=== PATIENT | female | born 1930 | race Caucasian/White ===

== ENCOUNTER 2020-03-08 10:42 | Inpatient (IN) | payer OTHER ==
[~2020-03-08] VITALS: Ht 160 cm; Wt 62.4 kg
--- NOTE | ~2020-03-08 | EMS ---
[address] [address] EMS Patient Care Report Name: GINNY LEWIS Room #: PRE LIDYA Delgado#: [id number] Admission: Attend Phys: Discharge: Date of : [birth year] Report #: [id number] THIS REPORT FOR: //name// Report Transmitted: 03/08/2020 10:24 EMS Care Summary [facility] MED-ACT Incident [id number] @ 03/08/2020 10:17 Incident Location [address] [place] [address] Patient GINNY LEWIS Female, 89 Years 1930 Patient Address [address] [place] [address] Patient History Diabetes,Hypertension (HTN),Depression,Back Pain (Chronic), Patient Allergies Demerol, Patient Medications Simvastatin, Amitriptyline, Citalopram, Metformin, Chief Complaint L FACIAL DROOP, SLURRED SPEECH Disposition Transported No Lights/[place] Dispatch Reason Stroke/CVA Transported To [facility] Narrative M1134 IS DISPATCHED AND RESPONDS NOTED. [address] [address] EMS Patient Care Report Name: GINNY LEWIS Room #: PRE ER Danny#: [id number] Admission: Attend Phys: Discharge: Date of : [birth year] Report #: [id number] UPON ARRIVAL AT SCENE M1134 IS DIRECTED TO PT ROOM. STAFF STATES THAT PT HAS BEEN SEEN 2 PREVIOUS TIMES IN 4 DAYS FOR TIA'S. THIS MORNING WHILE PROVIDING SERVICES TO PT, STAFF STATES PT HAD SUDDEN ONSET OF L FACIAL DROOP AND SLURRED SPEECH. UPON PT CONTACT, PT IS FOUND SEATED, ALERT, TRACKING, SHOWING NO SIGNS OF DISTRESS OR OBVIOUS TRAUMA. PT HAS OBVIOUS L FACIAL DROOP NOTED. PT CONFIRMS HER SPEECH IS ABNORMAL, HAS NO OTHER COMPLAINTS. PT DENIES PAIN, SOA, NVD OR OTHER UNLISTED COMPLAINTS. STROKE ALERT CALLED. PT MOVED TO COT [place]IA [place] [facility] WITHOUT INCIDENT. PT SECURED WITH ALL STRAPS, MOVED TO AMBULANCE WITHOUT INCIDENT. PT AND FAMILY AGREE TO TRANSPORT TO NEAREST STROKE CENTER, [facility]. PT MONITORED E[place]TE. RADIO REPORT AND STROKE ACTIVATION CALLED [place], NO QUESTIONS OR ORDERS ASKED OR RECEIVED. UPON ARRIVAL AT [facility] ER PT MOVED TO CT, PLACED ON SCANNER AND LEFT UNDER SUPERVISION OF CLAIMS CONFIGURATION ANALYST AND TURBO GENERATOR OILER. PT CARE TRANSFERRED TO CLAIMS CONFIGURATION ANALYSTANN MARIE RICO WITH VERBAL REPORT. Initial Vitals @10:31P: 79,R: 18,BP: 131/60,Pain: 0/10,GCS: 15,Glucose: 197,Revised Trauma: 12, @10:24P: 82,R: 18,BP: 116/65,Pain: 0/10,GCS: 15,Revised Trauma: 12, @10:36P: 74,R: 18,BP: 134/66,Pain: 0/10,GCS: 15,Revised Trauma: 12, Assessments @10:24MENTAL:Place Oriented,Time Oriented,Person Oriented,Event Oriented,SKIN:HEENT:Head/Face: Facial Droop,Eyes: Left Pupil: 4-mm,Eyes: Right Pupil: 4-mm,LUNG SOUNDS:Right Upper: Other,ABDOMEN:Right Upper: Other,PELVIS//GI:EXTREMITIES:Capillary Refill: Right Upper: < 2 Sec,Capillary Refill: Left Upper: < 2 Sec,PULSE:Radial: 2+ Normal,NEURO:Facial Droop,Slurred Speech, Impression Stroke Procedures @10:24ALS AssessmentResponse: UnchangedSucceeded@10:25Stroke AlertResponse: Unchanged@10:29Saline Lock 10cc (18 ga) Site: Antecubital-LeftResponse: UnchangedSucceeded Timeline 10:16,Call Received 10:16,Psap Call 10:17,Dispatched [address] [address] EMS Patient Care Report Name: GINNY LEWIS Room #: PRE ER M.R.#: [id number] Admission: Attend Phys: Discharge: Date of : [birth year] Report #: [id number] 10:19,En Route 10:21,On Scene 10:23,At Patient 10:24,ALS Assessment,Response: UnchangedSucceeded, 10:24,BP: 116/65 M,PULSE: 82,RR: 18 R,SPO2: Ox,ETCO2: ,BG: ,PAIN: 0,GCS: 15, 10:25,Stroke Alert,Response: Unchanged 10:29,Saline Lock 10cc 18 ga Site: Antecubital-Left,Response: UnchangedSucceeded, 10:30,Depart Scene 10:31,BP: 131/60 M,PULSE: 79,RR: 18 R,SPO2: Ox,ETCO2: ,B,PAIN: 0,GCS: 15, 10:36,BP: 134/66 M,PULSE: 74,RR: 18 R,SPO2: Ox,ETCO2: ,BG: ,PAIN: 0,GCS: 15, 10:40,At Destination 10:43,Transfer Patient 11:00,Call Closed Disclaimer v1.1 Copyright 2020 [employer] This EMS Care Summary contains data elements from the applicable legal record (which may be displayed differently). It is designed to provide pertinent information for the following purposes: continuity of care, clinical quality, and state data reporting. The complete legal record is available to ED staff and administrators of the receiving hospital in [employer] Patient Tracker. All data is provided "as is."
--- NOTE | ~2020-03-08 | HC ---
[facility] [place] [address] CONSULTATION Name: GINNY LEWIS Room #: 204-P ADM IN M.R.#: [id number] Admission: 03/08/20 Attend Phys: aJe Dawn MD Discharge: Date of : [birth year] Report #: [id number] THIS REPORT FOR: cc: Saw Whitehead MD,Saw Stout,Yoni Belcher MD ~ CC: Jae Whitehead DATE OF SERVICE: 03/08/2020 HISTORY OF PRESENT ILLNESS: This is an 89-year-old female patient who was evaluated by me for the possibility of stroke. The patient was discussed with the Emergency Room physician and subsequently I talked to the patient's daughter multiple times and talked to the patient. I talked to MRI and we got the MRI done and I reviewed the MRI report and the films. The patient was in [facility] on Tuesday with what looks like an episode of speech difficulty and right-sided weakness from which she became better. She may not have returned completely back to the baseline, but overall she was improved. She had another episode yesterday and had another episode today and in fact she may have had the fourth episode. She is not completely back to the baseline, but is close to that. MRI films reviewed indicate that she had an acute infarct. There are small infarcts in the left cerebral hemisphere, which will correlate with the patient's symptoms. She had a slight fall, but does not look like she injured her spine much, but she had an old spine injury and so I got an MRI of the C-spine done and that shows myelomalacia, which would be consistent with injury. It complicates the things because the patient has a preexisting weakness on the right side that is because of spinal cord injury and now is having symptoms on the same side. REVIEW OF SYSTEMS: She is on multiple medications like Lexapro and amitriptyline. She is on aspirin. She had some history of falls. There had been some concern about giving her blood thinner because of the falls. She still lives in independent living. A 14-point review of systems is positive for above. PAST MEDICAL HISTORY: Positive for spinal cord injury long time ago. FAMILY HISTORY: Unremarkable. SOCIAL HISTORY: She is in assisted living and she has a very supporting daughter. PHYSICAL EXAMINATION: She is alert, responsive, able to follow simple and [facility] [address] [place] [address] CONSULTATION Name: GINNY LEWIS Room #: 204-P [facility] IN .R.#: [id number] Admission: 03/08/20 Attend Phys: Jae Dawn MD Discharge: Date of : [birth year] Report #: [id number] complex command. Her speech reasonably looked good now, but it was slurred earlier. She is weak on the right side, especially in the right leg, she barely moves, but apparently that is old, but she can still appreciate the position sense on both sides. There is no meningeal sign. Cardiac examination appears unremarkable. No respiratory difficulty was noticed. I reviewed all her MRI films and discussed the situation with the daughter and in fact showed her the films. IMPRESSION: 1. 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 2. 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 RECOMMENDATION: I discussed the situation with the patient and the daughter. I discussed with them that the large vessel looks good and the stroke is most likely because of small vessel disease. Unfortunately, not much can be done about that except antiplatelet therapy. I discussed with them that it is the nature of the stroke that they fluctuate for up to several days and can become worse for several days and sometime the patient becomes completely paralyzed before they start improving. We have given her a loading dose of Plavix. We will continue about with a combination of aspirin and Plavix. Daughter tells me that she has a history of fall. That does complicate the things because blood thinner does increase her chances of complication from the fall as well as for bleeding. So after discussing things with her, my recommendation was to continue combination of aspirin and Plavix when she is in the hospital and she will have more help available. Hopefully, after that she can go to rehab, especially with her history of fall, I hope she will qualify because she needs to be closely monitored and she came from independent living and falls can be catastrophic in this patient and on the basis of that, I hope she will qualify for rehabilitation. If not, then I think we have to consider usp facility because I do not think she should go to independent living for the time being because of the history of the fall and I hope on the basis of that, she will qualify to go to rehab or usp facility. We will put a PT, OT consult and a returned case inspector consult to see if she qualifies. We need to keep her blood pressure somewhat high for a permissive hypertension and we need to give her some fluids. If she deteriorates, we will give her more fluids. We will get an echocardiogram done and as an outpatient, she may need prolonged monitoring to look for atrial fibrillation. If we find any atrial fibrillation when she is on the monitor here, then I do not think she will need that prolonged monitoring. Those things will be decided next week. Presently, I think it is best to keep her in the hospital, give her a combination of aspirin and Plavix, nurses should help her to prevent any falls and hopefully she will qualify for the rehab and can go and spend some time in rehabilitation until she can come back to her baseline and long-term use of aspirin and Plavix will be decided later on in conjunction with discussion with the daughter and the [facility] [address] [place] [address] CONSULTATION Name: GINNY LEWIS Room #: 204-P [facility] IN ..#: [id number] Admission: 03/08/20 Attend Phys: Jae Dawn MD Discharge: Date of : [birth year] Report #: [id number] patient herself. After talking to daughter, I also talked to the patient and described all those things with her and she is agreeable with that. Approximately 50 minutes of time was spent taking care of this patient today and majority of that time was spent counseling the daughter, the patient, reviewing her films, reviewing her imaging studies of the brain. Thank you very much for this referral and if you have any question, please feel free to contact me. By: [id number] Yoni Stout MD /nt
--- NOTE | ~2020-03-08 | HC ---
[facility] [place] [address] CONSULTATION Name: GINNY LEWIS Room #: 204-P [facility] IN M.R.#: [id number] Admission: 03/08/20 Attend Phys: Jae Dawn MD Discharge: 03/10/20 Date of : [birth year] Report #: [id number] THIS REPORT FOR: cc: Saw Whitehead MD,Praneeth Champion MD, MD ~ CC: Jae Whitehead DATE OF SERVICE: 03/10/2020 HISTORY OF PRESENT ILLNESS: The patient is an 89-year-old white female who was admitted with right-sided weakness, noted to be recurrent. She also had a fall backwards with injury to the back of her head. She was admitted and underwent further evaluation. Workup is consistent with an acute CVA with right-sided weakness. She was noted to have 4 small CVAs, left thalamic as well as adjacent white matter. A prior history is a history of a cervical spinal cord injury when she apparently fell off a bridge 25 years ago and she does have some resultant right-sided weakness. Her course has now been complicated by some further weakness from this new stroke. She also underwent an MRI scan of her cervical spine by Neurology and it did reveal some severe neural foraminal stenosis at C5-C6. She also has the old thinning of the cervical spinal cord at C6-C7 with some changes suggestive of myelomalacia. With the new CVA complicating a prior cervical spinal cord injury with residual paresis, the patient is now being seen in Rehabilitation Medicine consultation. PAST MEDICAL HISTORY: Includes the prior cervical spinal cord injury. She has a history of back pain, depression, diabetes mellitus, and hypertension. ALLERGIES: MEPERIDINE. MEDICATIONS: Please see the full medication listing. HABITS: No history of tobacco abuse, alcohol only on special occasions. SOCIAL HISTORY: She has been living in an independent living apartment with her caregiver. The person was not really a caregiver, but more of a sitter. The daughter notes that she did assist with some bathing and also trying to ensure that the patient did not fall. The daughter indicates that the prior sitter is not an option and they will need to get a different sitter or consider having the patient move into an assisted living facility. [facility]. REVIEW OF SYSTEMS: No current complaints of chest pain, shortness of breath or abdominal discomfort. [address] [address] CONSULTATION Name: GINNY LEWIS Room #: 204-P [facility] IN ..#: [id number] Admission: 03/08/20 Attend Phys: Jae Dawn MD Discharge: 03/10/20 Date of : [birth year] Report #: [id number] PHYSICAL EXAMINATION: GENERAL: An 89-year-old pleasant white female, in no obvious distress. She is here with her daughter in the room. The patient is alert. VITAL SIGNS: Temperature 98.3, pulse 88, respirations 17, blood pressure 142/73. HEENT: Appeared to be benign. NEUROLOGIC: Cranial nerves are grossly intact. Facies appeared symmetric. There is slight slurring of her speech, but overall can communicate quite well. Tends to defer some answers to her daughter. EXTREMITIES: She does have some decreased coordination of that right upper extremity. Strength is probably a grade 4-/5. Right lower extremity appears weaker, probably a grade 3+ with some difficulty with hip flexion and knee extension, but this is noted to be old with a prior spinal cord injury. Tone was actually reasonably intact. There was no clonus at the ankle and no significant DTR at the knee. Sensation appeared reasonably intact to simultaneous stimulation except for some decreased sensation of her right third digit, which she thought might be worse than premorbid. Functionally, she has been min assist sit to stand and gait short distances is min assist with a front-wheeled walker. ASSESSMENT: An 89-year-old white female with the following problem list: 1. 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 2. 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 3. Right-sided weakness, some appears to be premorbid, now complicated by the new strokes. 4. Functional mobility and activities of daily living deficits and cognitive concerns. 5. Diabetes mellitus. 6. Hypertension. 7. Depression. PLAN: The patient is a candidate for an acute [address] [place] [address] inpatient rehabilitation stay. Can plan on transfer when medically cleared and a bed available. Thank you for asking us to assist in this patient's care. By: [id number] Praneeth Flower MD /IDA
[2020-03-08] MEDS ORDERED: METFORMIN HCL500 M3 PO (11:14)
[2020-03-08] MEDS ORDERED: SIMVASTATIN80 MG PO (11:15)
[2020-03-08] MEDS ORDERED: CELEXA 20 MG TA20 MG PO (11:15)
[2020-03-08] MEDS ORDERED: AMITRIPTYLINE H50 M3 PO (11:16)
[2020-03-08] MEDS ORDERED: ESSENTIAL DAIL1 EACH PO (11:16)
[2020-03-08] MEDS ORDERED: ALPHA LIPOIC A600 M1 PO (11:17)
[2020-03-08] MEDS ORDERED: SENNA PLUS TAB1 EACH PO (11:18)
[2020-03-08] MEDS ORDERED: APAP650 PO (11:18)
[2020-03-08 11:22] LABS: ABSOLUTE NEUTROPHILS 3.7 thou/uL (1.4-8.2); BASOPHILS 0.7 % (0.0-2.0); EOSINOPHILS 6.9 % (0.0-3.0); HEMATOCRIT 32.7 % (37.0-47.0); HEMOGLOBIN 11.1 gm/dL (12.0-15.0); LYMPHOCYTES 19.7 % (24.0-44.0); MCH 32.1 pg (26.0-34.0); MCV 94.6 fL (80.0-100.0); MONOCYTES 10.1 % (1.0-8.0); PLATELET COUNT 269 thou/uL (150-400); POLYS 62.6 % (36.0-66.0); RBC 3.45 mil/uL (4.20-5.00); RDW 13.8 % (10.5-14.5); WBC 5.9 thou/uL (4.0-11.0)
[2020-03-08 11:29] LABS: APTT 27.9 Seconds (24.5-32.8); INR 1.1; PROTIME 10.9 Seconds (9.3-11.4)
[2020-03-08 11:45] LABS: ANION GAP 7 mmol/L (7-16); BUN 23 mg/dL (7-18); CALCIUM 8.9 mg/dL (8.5-10.1); CHLORIDE 100 mmol/L (98-107); CO2 29 mmol/L (21-32); CREATININE 0.8 mg/dL (0.6-1.0); GLUCOSE 173 mg/dL (74-106); POTASSIUM 4.1 mmol/L (3.5-5.1); SODIUM 136 mmol/L (136-145)
[2020-03-08 11:49] LABS: ALBUMIN 3.3 g/dL (3.4-5.0); MAGNESIUM 2.1 mg/dL (1.8-2.4); SGOT 15 U/L (15-37); SGPT 19 U/L (30-65); TOTAL BILIRUBIN 0.3 mg/dL (0.2-1.0); TOTAL PROTEIN 6.7 g/dL (6.4-8.2); TROPONIN-I <0.06 ng/mL (<0.06)
[2020-03-08 16:20] VITALS: BP 170/81
[2020-03-08 17:30] VITALS: BP 142/102
--- NOTE | 2020-03-08 18:14 | NUR ---
PATIENT ARRIVED FROM ED VIA W/C, ALERT AND ORIENTED X4, ACCOMPANIED BY HER DAUGHTER AND SCAGLIOLA MECHANIC. ASSESSMENT DOCUMENTED, AND ADMISION COMPLETED. BP 142/102, OTHER VSS AND NIHSS 0. AND WILL CONTINUE WITH POC.
[2020-03-08 19:30] VITALS: BP 171/67
[2020-03-09 04:00] VITALS: BP 153/86
[2020-03-09 05:12] LABS: HEMATOCRIT 33.7 % (37.0-47.0); HEMOGLOBIN 11.5 gm/dL (12.0-15.0); MCH 32.3 pg (26.0-34.0); MCV 94.9 fL (80.0-100.0); RBC 3.55 mil/uL (4.20-5.00); RDW 14.1 % (10.5-14.5); WBC 6.4 thou/uL (4.0-11.0)
[2020-03-09 05:37] LABS: CALCIUM 8.7 mg/dL (8.5-10.1); CREATININE 0.8 mg/dL (0.6-1.0); POTASSIUM 3.9 mmol/L (3.5-5.1)
--- NOTE | 2020-03-09 05:50 | NUR ---
ASSESSMENT DOCUMENTED.PT BEEN RESTING IN NO ACUTE DISTRESS.A/OX4.VSS.PT REPORTED THAT SHE NOTED BLOOD IN HER COMMOND AFTER USING THE BSC,RN CHECKED NO SIGNS OF BLEEDING.RECTAL AREA WAS INSPECTED,NO SIGN OF BLOOD OR ACTIVE BLEEDING NOTED.DR SALAMANCA DISCONTINUED LOVENOX AND ADVISED TO MONITOR FOR BLEEDING.NO DROP IN HGB NOTED.UP WITH ASSIST TO TOILET.PT DENIES PAIN OR ANY DISTRESS AT THIS TIME.POC IS TO CONT WITH TX WITH POSSIBLE DISCHARGE TO REHAB IN 1-2 DAYS.
[2020-03-09 07:20] VITALS: BP 157/76
[2020-03-09 08:12] VITALS: BP 157/76
[2020-03-09 11:52] VITALS: BP 147/77
[2020-03-09 15:31] VITALS: BP 165/80
--- NOTE | 2020-03-09 16:50 | NUR ---
ASSUMED CARE AT SHIFT, ALERT AND ORIENTED X4. BP 147-167/76-80, OTHER VSS AND NSR ON THE MONITOR. DENIES NAY DISCOMFORT. CALL APPROPRIATLY FOR ASSISTANCE. PROGRESSING TOWARDS THE GOALS AND WILL CONTINUE WITH POC.
[2020-03-09 17:28] LABS: URINE BILIRUBIN NEGATIVE (Negative); URINE BLOOD NEGATIVE (Negative); URINE CLARITY CLEAR; URINE COLOR YELLOW; URINE GLUCOSE-RANDOM* NEGATIVE (Negative); URINE KETONES NEGATIVE (Negative); URINE LEUKOCYTES-REFLEX TRACE (Negative); URINE NITRITE-REFLEX NEGATIVE (Negative); URINE PROTEIN (DIPSTICK) NEGATIVE (Negative); URINE UROBILINOGEN 0.2 E.U./dl (0.2-1.0)
[2020-03-09 17:38] LABS: AMP/METHAMP Negative (Negative); BARBITURATES Negative (Negative); BENZODIAZEPINES Negative (Negative); COCAINE Negative (Negative); METHADONE Negative (Negative); OPIATES Negative (Negative); PCP Negative (Negative)
[2020-03-09 19:55] VITALS: BP 162/83
[2020-03-10 00:28] VITALS: BP 158/74
--- NOTE | 2020-03-10 04:06 | NUR ---
NO EVENTS OVERNIGHT. PT ALERT AND ORIENTED. VSS. DENIES PAIN, CHEST DISCOMFORT, OR NAUSEA AND VOMITING. ASSIST X 1 TO THE BEDSIDE COMMODE. NIH SCORE 2. PT COMPLAINS OF INCREASED RIGHT LEG WEAKNESS FOR A FEW DAYS NOW. NO OTHER CONCERNS. WILL CONTINUE TO MONITOR.
[2020-03-10 04:39] VITALS: BP 166/86
[2020-03-10 05:05] LABS: CHOLESTEROL 197 mg/dL (<200); HDL CHOLESTEROL 59 mg/dL (>40); LDL CHOLESTEROL 123 mg/dL (<100); TC:HDL 3.3 Ratio (Not establshd); TRIGLYCERIDE 78 mg/dL (<150); VLDL 16 mg/dL (<40)
[2020-03-10 05:06] LABS: SERUM ASSESSMENT Clear
[2020-03-10 07:57] VITALS: BP 145/90
--- NOTE | 2020-03-10 08:14 | EKG ---
[facility] [place] [address] ELECTROCARDIOGRAM REPORT Name: GINNY LEWIS Room #: 204-P ADM IN M.R.#: [id number] Admission: 03/08/20 Attend Phys: Jae Dawn MD Discharge: Date of : [birth year] Report #: [id number] THIS REPORT FOR: cc: Saw Whitehead MD, Christopher MD Lundgren,Rivas Vences MD [facility] ~ THIS REPORT FOR: //name// [facility] ED Test Date: 2020-03-08 Test Time: 11:31:06 Pat Name: GINNY LEWIS Department: Room: [facility] Gender: F Deli Clerk: fa : 1930 Requested By: Neal Phoenix Order Number: [id number] MD: Rivas Plata Measurements Intervals [place] Rate: 70 P: 72 WV: 208 QRS: 18 QRSD: 106 T: 20 QT: 408 QTc: 441 Interpretive Statements Sinus rhythm Septal infarct, age indeterminant No previous ECG available for comparison Electronically Signed On 03-10-2020 8:13:59 CDT by Rivas Plata [email or web address] <ELECTRONICALLY SIGNED> By: Rivas Plata MD, FAC 03/10/20 08 1131 1131 Rivas Plata MD, [facility] /EPI
--- NOTE | 2020-03-10 10:46 | NUR ---
met with patient who resides in independent living at [facility], dtr at bedside. She has a "sitter" per dtr 5 days a week for 8 hours a day, Sitter does not provide hands on care assist with laundry and meals. On weekend she has assistance with meals. Patient uses a walker for ambulation. Dtr reports she does not ambulate very far. She has a wc but does not use. She has commode at bedside. Patient has been at [facility] in [facility] and [facility]. She is to be evaled by [facility] today. patient agreeable to acute rehab.
--- NOTE | 2020-03-10 11:25 | 2DMMODE ---
[facility] [address] [place] [address] 2 D/M-MODE ECHOCARDIOGRAM Name: GINNY LEWIS Room #: 204-P ADM IN M.R.#: [id number] Admission: 03/08/20 Attend Phys: Jae Dawn MD Discharge: Date of : [birth year] Report #: [id number] THIS REPORT FOR: cc: Saw Whitehead MD, Christopher MD Lammoglia, Francisco J. MD ~ APPROVED REPORT Study performed: 03/10/2020 09:28:08 EXAM: Comprehensive 2D, Doppler, and color-flow Echocardiogram Patient Location: Bedside Room #: 204 Status: routine BSA: 1.63 HR: 85 bpm BP: 145/90 mmHg Rhythm: NSR Other Information Study Quality: Good Indications CVA/TIA Diabetes Hypertension/HDD Echo Enhancing Agent Indication: Rule out Shunt Agent(s) / Amount(s) Used: Agitated Saline 7 cc 2D Dimensions IVC: 11.00 mm Volumes Left Atrial Volume (Systole) Single Plane 4CH: 33.72 mL Single Plane 2CH: 25.68 mL LA ESV Index: 22.00 mL/m2 Aortic Valve AoV Peak Miguel Ángel.: 1.52 m/s AO Peak Gr.: 9.20 mmHg LVOT Max P.36 mmHg LVOT Max V: 1.04 m/s [facility] [place] [address] 2 D/M-MODE ECHOCARDIOGRAM Name: GINNY LEWIS Room #: 204-P ADM IN M.R.#: [id number] Admission: 03/08/20 Attend Phys: Jae Dawn MD Discharge: Date of : [birth year] Report #: [id number] Pulmonary Valve PV Peak Miguel Ángel.: 0.90 m/s PV Peak Gr.: 3.27 mmHg Left Ventricle The left ventricle is normal size. There is normal LV segmental wall motion. There is normal left ventricular wall thickness. The left ventricular systolic function is normal. The left ventricular ejection fraction is within the normal range. LVEF is 55-60%. Grade I - abnormal relaxation pattern. Right Ventricle The right ventricle is normal size. The right ventricular systolic function is normal. Atria The left atrium size is normal. PFO is noted with agitated saline injection. The right atrium size is normal. Aortic Valve The aortic valve is normal in structure. No aortic regurgitation is present. There is no aortic valvular stenosis. Mitral Valve The mitral valve is normal in structure. Trace mitral regurgitation. No evidence of mitral valve stenosis. Tricuspid Valve The tricuspid valve is normal in structure. There is no tricuspid valve regurgitation noted. Pulmonic Valve The pulmonary valve is normal in structure. There is no pulmonic valvular regurgitation. Great Vessels The aortic root is normal in size. IVC is normal in size and collapses >50% with inspiration. Pericardium There is no pericardial effusion. <Conclusion> The left ventricle is normal size. LVEF is 55-60%. The left atrium size is normal. The right atrium size is normal. [facility] [address] [place] [address] 2 D/M-MODE ECHOCARDIOGRAM Name: GINNY LEWIS Room #: 204-P [facility] IN .R.#: [id number] Admission: 03/08/20 Attend Phys: Jae Dawn MD Discharge: Date of : [birth year] Report #: [id number] The aortic valve is normal in structure. The mitral valve is normal in structure. Trace mitral regurgitation. The tricuspid valve is normal in structure. The pulmonary valve is normal in structure. There is no pericardial effusion. PFO is noted with agitated saline injection. <ELECTRONICALLY SIGNED> By: Matthias Joseph MD 03/10/20 1124 1124 1124 Matthias Joseph MD /INF
[2020-03-10] MEDS ORDERED: LIPITOR 20 MG T20 M1 PO (11:46)
[2020-03-10] MEDS ORDERED: ASPIRIN325 PO (11:46)
[2020-03-10] MEDS ORDERED: CLOPIDOGREL75 MG PO (11:46)
[2020-03-10 12:32] VITALS: BP 142/73
--- NOTE | 2020-03-10 12:34 | NUR ---
[facility] CONSULT RECEIVED FOR THIS PATIENT. Pt SEEN THIS AM BY DR. FRANKLIN. Pt IS GOOD CANDIDATE FOR ACUTE REHAB. PER DR. GARCÍA, Pt MEDICALLY READY FOR D/C TO REHAB TODAY. WILL PLAN TO ADMIT Pt TO [facility] REHAB THIS AFTERNOON. SPOKE WITH Pt ABOUT REHAB AND LEFT BROCHURE AT BEDSIDE FOR Pt AND DTR.
--- NOTE | 2020-03-10 14:58 | NUR ---
PATIENT ACCEPTED TO 5N PLAN TRANSFER TODAY.
--- NOTE | 2020-03-10 15:01 | NUR ---
ASSUMED CARE AT SHIFT CAHNGE ALERT AND ORIENTED, AND VSS. PATIENT DENIES ANY DISCOMFORT, DAUGHTER AT BEDSIDE VISITING. PLAN IS FOR PATIENT TO TRANSFER TO 5N, WAITING ON BED AND WILL CONTINUE WITH POC.
== END 2020-03-10 18:55 | DRG 65 ==
LOC: ER 10:42 → 2N 13:38 → EROBS 13:38 → 2N 16:33
PROVIDERS: Emergency Medicine; ADMIT Hospitalist; ATTEND Hospitalist
DX: I63.81 Other cerebral infarction due to occlusion or stenosis of small artery (principal); G81.91 Hemiplegia, unspecified affecting right dominant side; E44.1 Mild protein-calorie malnutrition; F32.9 Major depressive disorder, single episode, unspecified; I10 Essential (primary) hypertension; M54.12 Radiculopathy, cervical region; E11.65 Type 2 diabetes mellitus with hyperglycemia; E78.5 Hyperlipidemia, unspecified; Z60.2 Problems related to living alone; M62.84 Sarcopenia; K59.00 Constipation, unspecified; G47.00 Insomnia, unspecified; Z88.8 Allergy status to other drugs, medicaments and biological substances; Z79.82 Long term (current) use of aspirin; Z79.899 Other long term (current) drug therapy
CPT/HCPCS: 10081

== ENCOUNTER 2020-03-10 12:55 | Inpatient (IN) | payer OTHER ==
[~2020-03-10] VITALS: Ht 160 cm; Wt 50.2 kg
[~2020-03-10 12:55] MED LIST: ALPHA LIPOIC A600 M1 PO; AMITRIPTYLINE H50 M3 PO; APAP650 PO; ASPIRIN325 PO; CELEXA 20 MG TA20 MG PO; CLOPIDOGREL75 MG PO; ESSENTIAL DAIL1 EACH PO; LIPITOR 20 MG T20 M1 PO; METFORMIN HCL500 M3 PO; SENNA PLUS TAB1 EACH PO; SIMVASTATIN80 MG PO
--- NOTE | 2020-03-10 15:58 | NUR ---
chart review. jhon visited with sony via phone call prior to move to acute rehab. intro to cm, team meeting, and dcp. pt is able to make her needs know and is pleasant. she reported " live at independent living [facility]. 1st floor apartment. manage own medication. no longer drive. can get meals at [facility]. laundry room is in apartment. shower myself but someone is in the bathroom when i bathe. have rollator, shower chair, grab bars, bedside commode and life alert. have animal care service worker that only assist with meals, errands, cleaning and laundry 5 days week. [facility]. was supposed to have [facility] start this week. daughter benedict would be my support if needed. pcp dr fabienne esquivel"/sony. will cont following as needed for dc needs.
[2020-03-10 19:10] VITALS: BP 154/74
--- NOTE | 2020-03-11 04:10 | NUR ---
PLEASANT PATIENT IS ABLE TO WALK TO TOILET, BUT HAS HIP PAIN AND DRAGS RIGHT LEG ENOUGH THAT SHE WANTS TO USE BSC NEXT TRIP. SIGNIFICANT CASE OF USI WHICH SHE MANAGES WITH BRIEF AND PAD. LOOKS FORWARD TO WORKING WITH THERAPY TODAY SHE HAS RIGHT LEG WEAKNESS COMPLICATING PREVIOUS RIGHT LEG FOOT DRAG/DROP. PREDICTS THAT SHE WILL BE MVING FROM INDEPENDENT LIVING TO ASSISTED LIVING IN THE NEAR FUTURE
[2020-03-11 05:52] LABS: HEMATOCRIT 33.8 % (37.0-47.0); HEMOGLOBIN 11.5 gm/dL (12.0-15.0); MCH 32.3 pg (26.0-34.0); MCHC 34.1 g/dL (28.0-37.0); MCV 94.8 fL (80.0-100.0); RBC 3.56 mil/uL (4.20-5.00); RDW 13.9 % (10.5-14.5); WBC 5.6 thou/uL (4.0-11.0)
[2020-03-11 06:00] LABS: CALCIUM 8.6 mg/dL (8.5-10.1); CREATININE 0.8 mg/dL (0.6-1.0)
--- NOTE | 2020-03-11 13:12 | NUR ---
team meeting, recommendation: re team.
--- NOTE | 2020-03-11 17:39 | NUR ---
ASSUMED CARE AT 0700 TODAY. PT. IS MIN ASSIST WITH STANDING, GOING TO BATHROOM, GETTING INTO AND OUT OF BED. SHE WEARS BRIEFS FOR UA STRESS INCONTINENCE. DIABETIC PROTOCOL ORDERED TODAY. SHE TOOK HER MEDS AND ATE WITHOUT PROBLEMS NOTED. SHE IS A&OX4 BUT A BIT FORGETFUL. SHE HAS A BEDSIDE COMMODE. THE HAS SOME HIP/LEG WEAKNESS.
[2020-03-11 19:40] VITALS: BP 144/80
--- NOTE | 2020-03-12 01:47 | NUR ---
PT ALERT AND ORIENTED X 4, FORGETFUL. RIGHT SIDED WEAKNESS NOTED. DRAGS RIGHT FOOT WHEN UP. BLOOD SUGAR 205 AT HS. METFORMIN GIVEN ORDERED. PT DENIES PAIN OR DISCOMFORT. BED ALARM ON FOR SAFETY. PT APPEARS TO BE SLEEPING ON HOURLY ROUNDS.
[2020-03-12 02:06] LABS: GLYCOHEMOGLOBIN (HGB A1C) 7.8 % (4.8-5.6)
[2020-03-12 08:00] VITALS: BP 121/65
--- NOTE | 2020-03-12 11:07 | NUR ---
ASSUMED CARE AT 0700. PATIENT IS ALERT AND ORIENTED X4. PATIENT [place], PATIENT HAS RIGHT SIDED WEAKNESS. LUNGS ARE CLEAR. ABD IS SOFT WITH BSX4. PATIENT IS UP TO THE BSC WITH ASSIST OF 1 STAFF. PATIENT C/O CONSTIPATION. PATIENT HAS STRESS INCONTINENCE AT TIMES. PATIENT HAS S.L. IN HER RIGHT UPPER ARM. FALL AND SAFETY PROTOCOLS IN PLACE. C/O ARTHRITIC PAIN HER HANDS. MEDICATED WITH PRN PAIN MED. CONTINUES TO PROGRESS TOWARDS D/C GOALS. WILL CONTINUE TO MONITER.
--- NOTE | 2020-03-12 12:07 | NUR ---
pt daughter geri here for visit. cm visited with daughter at bedside. cm cont to wear own face mask and goggles during visit. sony getting ready to eat lunch. education with pt and daughter on weekly team meeting, recommendation " ok just need to know if she going to need allot of assistance or little will determine if she goes back to [place] or if need to look into [place]. i will be going out of town to take daughter to school but i am the contact and going to have a back up visitor since i wont be here"/geri.
[2020-03-12 20:00] VITALS: BP 129/68
--- NOTE | 2020-03-13 02:59 | NUR ---
PATIENT HAS BEEN A/0X4. SHE HAD BISCADOYL SUPPOSITORY FOR CONSTIPATION AROUND 2200. SHE HAD INCREASED CRAMPING AND GAS PAINS. PT GIVEN TYLENOL 650 WITH SOME RELIEF. PATIENT HAD MODERATE SIZE BM THAT WAS HARD AND HAD TO BE HELPED TO PASS OF OF RECTUM. PATIENT BOWEL SOUNDS POSITIVE X 4 AND ACTIVE. PATIENT SAT UP ON BSC FOR AWHILE AND THEN BACK TO BED. PATIENT TOOK HER MEDS WHOLE WITH WATER. SHE DID NOT WANT HER MIRALAX TONIGHT BUT DID HAVE HER DOCUSATE NA AND SENNA. PATIENT IS ASSIST X 1 TO BS. PATIENT IS SLEEPING AT THIS TIME. BED IN LOW POSITON AND BED ALARM IS ON. CONTINUING TO MONITOR.
[2020-03-13 08:01] VITALS: BP 140/57
--- NOTE | 2020-03-13 11:29 | NUR ---
ASSUMED CARE AT 0700. PATIENT IS ALERT AND ORIENTED X4. PATIENT HAS RIGHT SIDED WEAKNESS. LUNGS ARE CLEAR . ABD IS SOFT WITH BSX4. PATIENT IS STILL HAVING CONSTIPATION ISSUES. LAXATIVES GIVEN ORDERED. PRUNE JUICE GIVEN REQUESTED BY PATIENT. UP IN W/C FOR BREAKFAST. FALL AND SAFETY PROTOCOLS IN PLACE. PATIENT STATES JUST ANXIOUS ABOUT ALL THE THERAPY. 02 SAT 98%. VSS. CONTINUES TO PROGRESS SLOWLY TOWARDS D/C GOALS. WILL CONTINUE TO MONITER.
--- NOTE | 2020-03-13 14:45 | NUR ---
1445 Tylenol 650mg po given for c/o neck pain.
--- NOTE | 2020-03-13 16:30 | NUR ---
cm received phone call from daughter geri huston, just want an update on her mom, passed on having come constipation and anxious with therapy " yes she is getting so tired and worn out with all therapy. is there a way they can spilt it up or spread it out more to allow her to rest?"/geri. education that would pass on information to therapy " thank you, will check on her tomorrow"/ daughter.
[2020-03-13 19:14] VITALS: BP 140/69
--- NOTE | 2020-03-14 03:25 | NUR ---
UP TO BSC WITH 1P ASSIST FOR BM. TYLENOL FOR SUDDEN SHOULDER PAIN. A FEW GULPS OF WATER WITH ENCOURAGEMENT. PATIENT IS AWARE THAT THERAPIES WILL SPREAD OUT HER THERAPIES TODAY DUE TO HER FATIGUE AND EXHAUSTION YESTERDAY.
[2020-03-14 07:20] VITALS: BP 135/57
[2020-03-14 09:47] LABS: URINE BILIRUBIN NEGATIVE (Negative); URINE BLOOD NEGATIVE (Negative); URINE CLARITY CLEAR; URINE COLOR YELLOW; URINE GLUCOSE-RANDOM* NEGATIVE (Negative); URINE KETONES TRACE (Negative); URINE LEUKOCYTES-REFLEX NEGATIVE (Negative); URINE NITRITE-REFLEX NEGATIVE (Negative); URINE PROTEIN (DIPSTICK) NEGATIVE (Negative); URINE UROBILINOGEN 0.2 E.U./dl (0.2-1.0)
[2020-03-14 11:30] VITALS: BP 149/77
--- NOTE | 2020-03-14 14:57 | NUR ---
ASSUMED CARES AT 0700. PT AWAKE, ALERT AND ORIENTED* 4 BUT FORGETFUL. C/O SOB AND FATIGUE AFTER SPEECH THERAPY THIS AM, STATED, " THIS FEELS LIKE IF FELT WHEN I HAD STROKE". VITALS TAKEN AND ASSESSMENT DONE, STABLE. HOSPITALIST NOTIFIED. PT RESTED IN THE RECLINER AND HAD HER LUNCH, FEELING BETTER AFTER LUNCH AND WAS ABLE TO TOLERATE PHYSICAL THERAPY BETTER THAN YESTERDAY PER PHYSICAL THERAPIST. CONTINUES TO HAVE RIGHT SIDED WEAKNESS, DRAGGING R FOOT WITH AMBULATION. Q1H VISUAL CHECKS. CALL LIGHT WITHIN REACH. FALL PRECAUTIONS IN PLACE
[2020-03-14 20:01] VITALS: BP 172/69
--- NOTE | 2020-03-15 01:13 | NUR ---
USING BRIEF FOR HEAVY STRESS INCONTINENCE, GETS UP TO BSC WITH MAX ASSIST OF ONE FOR SMALL VOID AFTER BRIEF SATURATES. METFORMIN GIVEN AT HS FOR BLOOD SUGAR OF 203
[2020-03-15 07:50] VITALS: BP 173/81
[2020-03-15 10:02] VITALS: BP 147/65
--- NOTE | 2020-03-15 14:02 | NUR ---
ASSUMED CARES AT 0700. PT ORIENTED TO PERSON, PLACE AND SITUATION. FATIGUED AND LETHARGIC AFTER ST THIS AM, VITALS CHECKED REMAIN STABLE. PT SLEPT FOR 30MIN WOKE UP AND WAS ALERT AND WELL ORIENTED. PARTICIPATED WELL IN OT. DENIES PAIN. SPEECH REMAINS MUMBLED/SLURRED AT TIMES ARIEL WHEN TIRED. SOME FORGETFULNESS NOTED. UP WITH 1 MOD ASSIST, GB AND WALKER. EATING 25-50% OF HER MEAL. FREQ. VISUAL CHECKS. CALL LIGHT WITHIN REACH. FALL PRECAUTIONS IN PLACE
[2020-03-15 20:11] VITALS: BP 150/66
--- NOTE | 2020-03-16 01:23 | NUR ---
PT ALERT AND ORIENTED X 4, FORGETFUL. AMB TO BR WITH WALKER AND ASSIST X 1. DRAGS RIGHT FOOT. BLOOD SUGAR 251 AT HS. METFORMIN GIVEN. PT DENIES PAIN OR DISCOMFORT. BED ALARM ON FOR SAFETY. PT APPEARS TO BE SLEEPING ON HOURLY ROUNDS.
[2020-03-16 08:15] VITALS: BP 118/57
--- NOTE | 2020-03-16 14:01 | NUR ---
ASSUMED CARES AT 0700. PT SLEEPY/LETHARGIC/FATIGUED, ORIENTED*4. FORGETFUL. PT FALLING ASLEEP BETWEEN MEALS, THERAPIES AND SOMETIMES DURING CONVERSATIONS WITH STAFF. C/O FATIGUE, NAPS FOR 20-30MINS THEN WAKES UP. SPEECH SLURRED AND MUMBLED DURING THIS SLEEP/FATIGUE EPISODES. PT EATING POORLY, <50% PER MEAL. DENIES PAIN. VITALS REMAIN STABLE. CONTINUES TO HAVE RIGHT SIDED WEAKNESS, DRAGGING RIGHT LEG WITH AMBULATION. UNABLE TO PARTICIPATE WELL IN PHYSICAL THERAPY TODAY FELL ASLEEP STANDING AT THE SINK, WITH HEAD BOWED DOWN. PT UP WITH 1 MIN-MOD ASSIST GB AND WALKER. FREQ. VISUAL CHECKS. CALL LIGHT WITHIN REACH. FALL PRECAUTIONS IN PLACE
[2020-03-16 19:40] VITALS: BP 143/70
--- NOTE | 2020-03-16 20:37 | HC ---
[facility] [place] [address] CONSULTATION Name: GINNY LEWIS Room #: 512-P [facility] IN M.R.#: [id number] Admission: 03/10/20 Attend Phys: Praneeth Flower MD Discharge: Date of : [birth year] Report #: [id number] THIS REPORT FOR: cc: Saw Whitehead MD,Saw Posadas,Tommy Quinones. PhD ~ CC: Saw Flower DATE OF SERVICE: 03/16/2020 NEUROBEHAVIORAL STATUS EXAM ATTENDING PHYSICIAN: Praneeth Flower MD [employer]: Tommy Posadas, PhD AGE: 89. CLINICAL PRESENTATION: The patient is an 89-year-old female initially admitted to the [facility] after a fall and right-sided weakness. An MRI confirmed an acute stroke in 4 small areas. The patient also hit her head when falling backwards at her home. 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 Her medical history also includes cervical radiculopathy, recurrent TIAs, hyperglycemia and right-sided weakness. 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 A complete description of her medical condition and history can be found in her medical record. Neuropsychological consultation was requested to provide assistance in the assessment of cognitive and emotional status and provide recommendations and services. Prior to this most recent admission, the patient was residing in independent living at a [facility] named [facility]. She has 4 children. 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 Her was an orthopedic surgeon an from pancreatic cancer. TECHNIQUES UTILIZED: Clinical interview, review of medical records, staff consultation and behavioral observation, mini mental status exam 2 standard version, and clock drawing. [address] [address] CONSULTATION Name: GINNY LEWIS Room #: 512-P [facility] IN .R.#: [id number] Admission: 03/10/20 Attend Phys: Praneeth Flower MD Discharge: Date of : [birth year] Report #: [id number] EXAMINATION FINDINGS: The patient was very drowsy and lethargic during the assessment. It was difficult for her to maintain adequate alertness when questioned. She required frequent repetition to keep her eyes open and attend to task. Given the extreme drowsiness, the results of cognitive testing are not likely to be accurate representation of her actual level of functioning. She reports her symptoms to include sleep disturbance, difficulty with word finding and variability during expressive speech. Her mood is reported as depressed. She was uncertain about the extent of her appetite. Her performance on the MMSE-2 brief version was extremely low with a raw score of 9/16 with a T score of 4. She was 3/3 for initial registration, 3/5 for orientation to time, 3/[address] and 0/3 for immediate recall of 3 items after a brief time delay and distraction. Performance on the MMSE-2 standard version was a raw score of 18/30. She was 1/5 for serial 7's, 2/2 for naming, 1/1 for repetition, 3/3 for auditory comprehension. She could read and follow single command and write a sentence. The patient was unable to copy a simple geometric design or complete clock drawing. As indicated, her level of orientation and arousal was very poor and required frequent encouragement to maintain alertness. 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 Currently she is taking Amitriptyline in the AM. Amitriptyline can be exceptionally sedating. Consider discontinuing it, reducing the dose or taking it at night if it is necessary for her treatment. Her medical condition may also be contributing to the excessive daytime sleepiness. Consider medication to improve wakefulness, e.g., Nuvigil. The patient should be re-evaluated following an improvement in her level of wakefulness. Speech therapy report functioning to be within normal limits. However, current assessment because of delirium, shows cognitive disorder. [address] [address] CONSULTATION Name: GINNY LEWIS Room #: 512-P [facility] IN M.R.#: [id number] Admission: 03/10/20 Attend Phys: Praneeth Flower MD Discharge: Date of : [birth year] Report #: [id number] Thank you very much for allowing me to provide the consultation on this patient. <ELECTRONICALLY SIGNED> By: Tommy Posadas, PhD 03/16/20 2037 [id number] Tommy Posadas, PhD /nt
--- NOTE | 2020-03-17 00:12 | NUR ---
ASSUMED PT CARE AT 1900. PT IS A&OX4, BUT CAN BE SLOW TO RESPOND AT TIMES. REPORTS NO PAIN. WALKED TO TOILET W/ WALKER AND MOD ASSIST. PT REFUSED SOME OF HER STOOL SOFTENERS TONIGHT, ONLY WANTED CERTAIN ONCES DUE TO LOOSE STOOLS. HAS DEPENDS ON FOR STRESS INCONTINENCE. CURRENTLY RESTING IN BED WITH EYES CLOSED, WILL CONTINUE TO MONITOR.
[2020-03-17 07:45] VITALS: BP 159/77
--- NOTE | 2020-03-17 18:22 | NUR ---
PT ASSESSED AT START OF SHIFT. UP OUT OF BED MOST OF DAY. EATING AND DRINKING WELL. MENTATION GOOD. NO FALLING ASLEEP NOTED. ELAVIL CHANGED TO HS. NO C/O PAIN.
[2020-03-17 20:54] VITALS: BP 160/66
--- NOTE | 2020-03-18 03:33 | NUR ---
ASSUMED PT CARE AT 1900.PT WAS OBSERVED SITTING IN THE RECLINER IN HER ROOM WATCHING TV.PT DENIED PIAN SO FAR. UP WITHS SBA /GAIT BELT AND WALKER TO THE BSC.PT REF HER MIRALAX AND LACTULOSE AT HS.R SIDED WKNESS NOTED.BG MONITORED,METFORMIN GIVEN.PT SLEEPING COMFORTABLY ON HER BED AT THIS TIME.FALL PRECAUTIONJS IN PLACE,CALL LIGHT WITHIN REACH.
[2020-03-18 05:44] LABS: HEMOGLOBIN 10.9 gm/dL (12.0-15.0); MCHC 33.9 g/dL (28.0-37.0); MCV 94.4 fL (80.0-100.0); PLATELET COUNT 337 thou/uL (150-400); RBC 3.39 mil/uL (4.20-5.00); RDW 13.9 % (10.5-14.5); WBC 7.2 thou/uL (4.0-11.0)
[2020-03-18 05:53] LABS: CALCIUM 9.4 mg/dL (8.5-10.1); CREATININE 0.7 mg/dL (0.6-1.0); MAGNESIUM 1.8 mg/dL (1.8-2.4); POTASSIUM 4.1 mmol/L (3.5-5.1)
[2020-03-18 08:00] VITALS: BP 141/81
[2020-03-18 11:38] LABS: ABSOLUTE NEUTROPHILS 4.6 thou/uL (1.4-8.2)
[2020-03-18 11:40] LABS: ANISOCYTOSIS SLIGHT
--- NOTE | 2020-03-18 13:34 | NUR ---
team meeting, recommendation: 25th [facility], ( pt, ot, st, nursing). not safe with 4ww will need fww.
--- NOTE | 2020-03-18 14:23 | NUR ---
ASSUMED CARES AT 0700. PT AWAKE, ALERT AND ORIENTED*4 BUT FORGETFUL. PT MORE AWAKE AND ALERT THAN PREVIOUSLY NOTED. ABLE TO COMMUNICATE MORE EFFECTIVELY AND CLEAR AND LETS HER NEEDS KNOWN. DENIES PAIN AT THIS TIME. VITALS REMAIN STABLE. PT CONTINUES TO HAVE RIGHT SIDED WEAKNESS, CONTINUES TO DRAG RIGHT FOOT WITH AMBULATION. EATING 50-75% PER MEAL TODAY. CONTINUES TO HAVE STRESS INCONTINENCE, URINE IS LIGHT YELLOW AND CLEAR WITH NO FOUL ODOR. PT UP WITH 1 MIN ASSIST, GB AND WALKER AND TOLERATED WELL. Q1H VISUAL CHECKS. CALL LIGHT WITHIN REACH
[2020-03-18 19:40] VITALS: BP 135/57
--- NOTE | 2020-03-19 02:45 | NUR ---
DID NOT ASK FOR HER ROUTINE EVENING MEDS. WEARING BRIEF FOR HEAVY USI. UP TO BSC TO VOID WITH 1P ASSIST. LAXATIVES GIVEN SINCE NO BM TODAY, HER ROUTINE IS 4 SENNAKOT EVERY HS. 2 TYLENOL FOR LEFT THUMB PAIN, IS SLEEPING NOW
[2020-03-19 08:00] VITALS: BP 93/54
--- NOTE | 2020-03-19 12:26 | NUR ---
PT ALERT XS 4 ASSISTED TO BATHROOM USES ROLLING WALKER AND GAIT BELT. HAD MED BM TOOK AM MEDS AND WAS GIVEN INSULIN PER ORDERS. LUNGS CTA NO COUGH NO RESP DISTRESS. BS'S XS 4. INCONT OF URINE WEARS BRIEFS. PT PLEASANT AND COOPERATIVE WITH CARE.
--- NOTE | 2020-03-19 16:10 | NUR ---
PT UP IN BEDSIDE CHAIR AWAITING DINNER STATES NO PAIN OR RESP DISTRESS. PT IS PLEASANT AND COOPERATIVE. PT DID ALL OF HER THERAPIES TODAY. HAD 1 BM INCONT EPISODE COULD NOT GET TO TOILET SOON ENOUGH.
[2020-03-19 17:00] VITALS: BP 138/77
--- NOTE | 2020-03-19 18:06 | NUR ---
B/P WAS 93/54 THIS AM PATIENT'S DOCTOR AND PARKING METER MECHANIC AWARE NO ORDERS THIS AM. RECHECKED AT 1700 WAS 138/77.
[2020-03-19 19:40] VITALS: BP 147/86
--- NOTE | 2020-03-19 21:30 | NUR ---
REQUESTING ROUTINE HS MEDICATIONS
--- NOTE | 2020-03-20 03:05 | NUR ---
UP TO TOILET WITH GAIT BELT, WALKER, AND CONTACT GUARD ASSIST. LARGE BM EARLIER 03/19 AND SMEAR IN THE EVENING. CONTINUES TO MANAGE USI WITH BRIEF AND PAD. 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
--- NOTE | 2020-03-20 04:07 | NUR ---
DECLINED LACTULOSE, MIRALAX, AND COLACE AT HS LAST EVENING. DID TAKE 4 TABLETS OF SENNEKOT, WHICH IS WHAT SHE USUALLY TAKES EVERY NIGHT AT HOME. NOW HAVING LARGE BROWN SOFT FORMED BM, UNABLE TO FULLY CONTROL DURING WALK TO BATHROOM
[2020-03-20 08:00] VITALS: BP 122/67
--- NOTE | 2020-03-20 12:56 | NUR ---
FAXED UPDATE/REFERRAL TO [facility] FOR [facility] AT DISCHARGE PT IS NOW LIVING IN THEIR [facility].. DP TO FOLLOW.
--- NOTE | 2020-03-20 18:22 | NUR ---
ASSESSMENT CHARTED. MEDS PER SEP - SEEN BY THERAPY TODAY. MIKE DIET AND FLUIDS UP WITH THE USE OF A WALKER , MAKES MULTPLE TRIPS TO THE RESTROOM. PT UNSTEADY ON FEET AND NOT BALANCED WITH THE USE OF THE WALKER. UP IN THE CHAIR FOR MOST OF THE DAY. NO CO'S AT THE PRESENT TIME.
[2020-03-20 20:00] VITALS: BP 140/64
--- NOTE | 2020-03-20 23:48 | NUR ---
PT ALERT AND ORIENTED X 4, FORGETFUL. PT DID CALL FOR HS MEDS APPROPRIATELY. AMB TO BR WITH WALKER AND ASSIST X 1. VERY UNSTEADY GAIT. REQUIRES FREQUENT CUES FOR SAFETY. PT DENIES PAIN OR DISCOMFORT. BED ALARM ON FOR SAFETY. PT APPEARS TO BE SLEEPING ON HOURLY ROUNDS.
[2020-03-21 07:14] VITALS: BP 135/78
--- NOTE | 2020-03-21 09:23 | H ---
[facility] [place] [address] HISTORY AND PHYSICAL Name: GINNY LEWIS Room #: 512-P ADM IN M.R.#: [id number] Admission: 03/10/20 Attend Phys: Praneeth Flower MD Discharge: Date of : [birth year] Report #: [id number] THIS REPORT FOR: cc: Saw Whitehead MD,Saw Flower,Praneeth Medel MD ~ CC: Saw Flower DATE OF SERVICE: 03/10/2020 POSTADMISSION PHYSICIAN EVALUATION HISTORY OF PRESENT ILLNESS: Please see my consult note from yesterday and the history and physical documentation from today. The patient has a prior history of an old spinal cord trauma with residual right-sided weakness, who was admitted now with a new onset stroke with further right-sided weakness. She was noted to have an acute CVA with 4 small CVAs, left thalamic as well as adjacent white matter. She now has the complication of further weakness from the new stroke. She also underwent an MRI scan of her cervical spine, which revealed severe neural foraminal stenosis at C5-C6 and some old thinning of the cervical spinal cord at C6-C7 with some changes suggestive of myelomalacia. The new CVA complicates the prior spinal cord injury with residual paresis. She has been admitted for acute in-hospital inpatient rehabilitation. PAST MEDICAL HISTORY: Her prior history includes the prior cervical spinal cord injury. She has a history of back pain, depression, diabetes mellitus and hypertension. Please see the full documentation regarding social history and habits. MEDICATIONS: Please see the full MAR. ALLERGIES: MEPERIDINE. REVIEW OF SYSTEMS: No chest pain, shortness of breath or abdominal discomfort. PHYSICAL EXAMINATION: GENERAL: The patient was seen earlier, was in no distress. VITAL SIGNS: Last recorded temperature 98, pulse 82, respirations 20, blood pressure 154/74. Alert, pleasant. Facies appeared to be symmetric. HEENT: Appeared to be benign. CHEST: Sounded clear to auscultation. CARDIOVASCULAR: Regular rate and rhythm. ABDOMEN: Bowel sounds positive, nontender. GENITOURINARY AND RECTAL: Deferred. [facility] [address] [place] [address] HISTORY AND PHYSICAL Name: GINNY LEWIS Room #: 512-P [facility] IN M.R.#: [id number] Admission: 03/10/20 Attend Phys: Praneeth Flower MD Discharge: Date of : [birth year] Report #: [id number] EXTREMITIES: No lower extremity edema. Functionally decreased coordination of the right upper extremity with strength grade 4-/5. Lower extremity on the right appears to be weaker, probably a grade 3+/5. She appears to have functional range of motion and strength of the left upper and left lower extremity. As far as the right ankle, there was no clonus and no significant DTR at the knee. Sensation was reasonably intact to simultaneous stimulation except for some decreased sensation of her right third digit. Some of this sounds premorbid. She has been min assist sit to stand and ambulate short distances with a front-wheeled walker. ASSESSMENT: An 89-year-old white female with the following problem list: 1. 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 2. Premorbid cervical spinal cord injury with spinal cord myelomalacia, which appears old. 3. Right-sided weakness, some appears to be premorbid, now complicated by the new strokes. 4. Functional mobility, ADLs and cognitive concerns. 5. Diabetes mellitus. 6. Hypertension. 7. Depression. PLAN: The patient is admitted for an acute in-hospital inpatient rehabilitation stay. From a postadmission physician evaluation perspective, there are no relevant changes since the preadmission screening. Please see the above review of prior and current medical and functional conditions and comorbidities. Please see the patient's previous and current functional status. As far as risk of complication, she has multiple medical comorbidities as noted above. Initial plan of care involves the interdisciplinary acute inpatient rehabilitation program. Measurable functional goals would be for the patient to become modified independent with transfers, mobility, ADLs at a walker level to hopefully achieve her prior functional level. Also considering looking at assisted living options depending on how she does. Prognosis is reasonably good with estimated length of stay probably at least 2-3 weeks. Potential barriers would include her multiple medical comorbidities and decreased functional status. <ELECTRONICALLY SIGNED> By: Praneeth Flower MD 03/21/20 0923 [id number] Praneeth Flower MD /nt
--- NOTE | 2020-03-21 09:23 | PLAN ---
[facility] [place] [address] REHAB UNIT PLAN OF CARE Name: GINNY LEWIS Room #: 512-P ADM IN M.R.#: [id number] Admission: 03/10/20 Attend Phys: Praneeth Flower MD Discharge: Date of : [birth year] Report #: [id number] THIS REPORT FOR: //name// CC: Saw Flower DATE OF SERVICE: 03/12/2020 PROGRESS NOTE AND OVERALL PLAN CARE SUBJECTIVE: The patient is seen back today in followup. She is alert, pleasant. Last recorded temperature 97.6, pulse 80, respirations 20, and blood pressure 144/80. She is working in therapies with transfers mod assist, gait max assist 20 feet with a front-wheeled walker. In occupational therapy, lower body dressing is min assist. She is also following with speech therapy and has moderate memory deficits with [id number] cognitive deficits. ASSESSMENT: 1. Multiple small left hemispheric cerebrovascular accidents with right-sided weakness. 2. Chronic spinal cord myelomalacia. 3. Previous cervical spinal cord injury with premorbid right sided weakness. 4. Type 2 diabetes mellitus. 5. Hypertension. 6. Depression. 7. Constipation. PLAN: The overall plan of care is based on the preadmission screen, post-admission physician evaluation and information garnered from therapy assessments. 1. Estimated length of stay is probably at least 2-3 weeks. 2. Medical prognosis is reasonably good. 3. Anticipated interventions include the interdisciplinary acute inpatient rehabilitation program. 4. Anticipated functional outcomes would be for the patient to become modified independent with transfers, mobility, ADLs and improved cognition, so that she can hopefully return back to her prior living situation or more likely to an assisted living facility. 5. Discharge destination is as noted above. 6. Expected therapy by discipline includes PT, OT and speech 1 hour per day each five days a week throughout the duration of the acute inpatient rehabilitation stay. <ELECTRONICALLY SIGNED> By: Praneeth Flower MD 03/21/20 0923 [id number] Praneeth Flower MD /nt
--- NOTE | 2020-03-21 16:17 | NUR ---
ASSUMED CARES AT 0700. PT AWAKE, ALERT AND ORIENTED*4 BUT FORGETFUL. DENIES PAIN. HR ELEVATED THIS AM, ALL OTHER VITALS REMAIN STABLE. PT UP WITH 1 MIN-MOD ASSIST, GB AND WALKER, PT CONTINUES TO DRAG HER RIGHT LEG WITH AMBULATION. SOMETIMES LEG BETH AND PT HAS TO SIT DOWN SUDDENLY. Q1H VISUAL CHECKS. CALL LIGHT WITHIN REACH. FALL PRECAUTIONS IN PLACE
[2020-03-21 20:42] VITALS: BP 164/72
--- NOTE | 2020-03-22 01:40 | NUR ---
ASSUMED PT CARE AROUND 1930. AXOX4 WITH SANTO DOMINGO. ELECVATED BP NOTED, REPORTED TO LINEN CHECKER CLINICAL LABORATORY MEDICAL DIRECTOR FOR HIMS. COREG STARTED. NO S/S ACUTE DISTRESS NOTED OR REPORTED AT THIS TIME. WILL CONT TO MONITOR FOR ANY CHANGES IN CONDITION.
[2020-03-22 08:00] VITALS: BP 127/51
[2020-03-22 19:50] VITALS: BP 128/51
--- NOTE | 2020-03-22 20:36 | NUR ---
ASSUMED CARE OF PT AT 0700. PT IS A&OX4 AND VITAL SIGNS ARE STABLE. PT DENIES PAIN AND PARTICIPATED IN THERAPIES. ACCU CHECKS ACHS AND MANAGED PER ORDERS. PT CALLED APPROPRIATELY FOR MEDICATIONS. FALL PRECAUTIONS IN PLACE AND NURSING WILL CONTINUE TO MONITOR.
--- NOTE | 2020-03-23 02:10 | NUR ---
assumed care at approx 1900 evening 03/22. pt alert and oriented x4 sitting up in recliner at change of shift reading a book. pt pleasant and cooperative. pt called out for hs meds and given. pt had bm before falling asleep. pt appears to be sleeping soundly with hourly rounding. bed alarm on and call light in reach. will continue to monitor.
[2020-03-23 08:39] VITALS: BP 141/74
--- NOTE | 2020-03-23 11:36 | NUR ---
ASSUMED CARE OF PT AT 0715. PT IS A&OX4. IS BLACKFEET. IS ON ROOM AIR. IS STABLE. REPORTS LOWER BACK PAIN 08/10. PT WOULD LIKE TO SPEAK WITH DOCTOR CONCERNING MEDICATION FOR ARTHRITIS. OTHER THERAPUETIC TECHNIQUES PROVIDED. IS UP WITH 1 ASSIST, GB, WALKER. FALL PRECAUTIONS & HOURLY ROUNDING CONTINUED THIS SHIFT. LABS & VITALS REVIEWED. PT HAS ORAL RINSE IN MED ROOM THAT SHE WOULD LIKE TO CONTINUE TO USE. WOULD LIKE THAT OKAY BY DOCTOR. PT IS CURRENTLY UP IN RECLINER. CALL LIGHT WITHIN REACH. WILL CONTINUE TO MONITOR.
[2020-03-23 20:54] VITALS: BP 135/55
--- NOTE | 2020-03-24 04:07 | NUR ---
RECIEVED CARE OF THIS PATIENT AT 1900. UP TO BATHROOM WITH ASSIST OF ONE, GAIT BELT AND WALKER. NEEDS REMINDING TO STAND TALL AND CLOSE TO THE WALKER. DENIES PAIN. ACCUCHECK WAS 272, NO COVERAGE ORDERED. SLEPT MOST OF NIGHT.
[2020-03-24 07:30] VITALS: BP 128/58
--- NOTE | 2020-03-24 15:05 | NUR ---
cm called spoke with pt daughter benedict via phone call " mom going to stay in [place] at [facility] until [facility] opens up. going to have 24hr cg from [facility] and [facility] can [facility] [place] [facility]. thank you for calling"/benedict.
--- NOTE | 2020-03-24 15:56 | NUR ---
ASSUMED CARES AT 0700. PT ORIENTED*4. DENIES PAIN. VITALS REMAIN STABLE. PT CONTINUES TO HAVE RIGHT SIDED WEAKNESS AND FOOT DRAG WITH AMBULATION. NOTED TO BUCKLE HER LEGS WHEN FATIGUED AFTER WALKING FROM CHAIR TO THE BATHROOM. PT CONTINUES TO HAVE STRESS INCONTINENCE. PLANS ARE FOR DC TOMORROW TO INDEPENDENT LIVING WITH 24/7 CARE UNTIL DAUGHTER IS ABLE TO ARRANGE TRANSFER TO ASSISTED LIVING. COVID TEST DONE, AWAITING RESULTS. PT PARTICIPATED IN ALL THERAPIES. Q1H VISUAL CHECKS. CALL LIGHT WITHIN REACH. FALL PRECAUTIONS IN PLACE
[2020-03-24 19:30] VITALS: BP 142/66
--- NOTE | 2020-03-24 23:12 | NUR ---
[facility] PT CARE AROUND 193. AXOX4. BLACKFEET. VSS. NO S/S ACUTE DISTRESS NOTED OR REPORTED AT THIS TIME. CARE TRANSFERRED TO ANOTHER RN AT THIS TIME.
[2020-03-25 06:11] LABS: ABSOLUTE NEUTROPHILS 5.4 thou/uL (1.4-8.2); BASOPHILS 0.7 % (0.0-2.0); EOSINOPHILS 7.6 % (0.0-3.0); HEMATOCRIT 28.3 % (37.0-47.0); HEMOGLOBIN 9.6 gm/dL (12.0-15.0); LYMPHOCYTES 16.8 % (24.0-44.0); MCHC 33.9 g/dL (28.0-37.0); MCV 94.3 fL (80.0-100.0); MONOCYTES 8.1 % (1.0-8.0); PLATELET COUNT 436 thou/uL (150-400); POLYS 66.8 % (36.0-66.0); RDW 13.5 % (10.5-14.5); WBC 8.1 thou/uL (4.0-11.0)
--- NOTE | 2020-03-25 06:26 | NUR ---
ASSUMED PT CARE AT AROUND 2300HRS. PT IS [place]. REQUIRES MAX ASSIST TO THE BSC, HAD A LARGE BM, MOSTLY WITH INCONTINENCE. PT DENIES PAIN. SHE IS NICE AND COOPERATIVE WITH CARES. AFEBRILE.ROOM AIR WITH NO SIGNS OF SOA. FALL PREC IN PLACE.
[2020-03-25 06:31] LABS: CALCIUM 8.8 mg/dL (8.5-10.1); CREATININE 0.7 mg/dL (0.6-1.0); POTASSIUM 4.2 mmol/L (3.5-5.1)
[2020-03-25 08:15] VITALS: BP 156/69
--- NOTE | 2020-03-25 10:20 | NUR ---
[facility] called they can accept for hh needs at [place] today. pt will have [facility] as well set up by pt daughter. family will transport her back to [facility] today. ct order to be fax to [phone] [facility].
[2020-03-25 10:22] VITALS: BP 156/69
[2020-03-25] MEDS ORDERED: CLOPIDOGREL75 MG PO (11:47)
[2020-03-25] MEDS ORDERED: PEPCID20 MG PO (11:47)
[2020-03-25] MEDS ORDERED: LIPITOR 20 MG T20 M1 PO (11:47)
[2020-03-25] MEDS ORDERED: CARVEDILOL3.125 MG PO (11:47)
--- NOTE | 2020-03-25 14:53 | NUR ---
PT ALERT AND ORIENTED TIMES FOUR. VSS. PT DENIES PAIN/SOA. PT TOLERATES MEDS AND MEALS. PT WORKED WELL WITH PT/OT TODAY. PT UP IN THE CHAIR FOR MOST OF THE DAY. PT PLANS TO DISCHARGE TODAY. PT PROGRESSING TOWRADS POC GOALS.
[2020-03-25 16:42] VITALS: BP 156/69
--- NOTE | 2020-03-25 17:13 | NUR ---
PT DISCHARGING TODAY TO [facility] [place] FAXED REFERRAL TO [facility] HH THEY USE AT FACILITY RECEIVED CONFIRMATION AND WILL F/U WITH THEM IN THE AM.
== END 2020-03-25 16:45 | disposition home health service (06) | DRG 56 ==
PROVIDERS: Nurse Practitioner; Nurse Practitioner Family; ADMIT Physical Medicine & Rehabilitation; ATTEND Physical Medicine & Rehabilitation
DX: I69.351 Hemiplegia and hemiparesis following cerebral infarction affecting right dominant side (principal); I63.9 Cerebral infarction, unspecified; G95.89 Other specified diseases of spinal cord; E11.9 Type 2 diabetes mellitus without complications; I10 Essential (primary) hypertension; F32.9 Major depressive disorder, single episode, unspecified; Z20.828 Contact with and (suspected) exposure to other viral communicable diseases; K59.00 Constipation, unspecified; R41.9 Unspecified symptoms and signs involving cognitive functions and awareness; R41.0 Disorientation, unspecified; Z88.8 Allergy status to other drugs, medicaments and biological substances; Z79.82 Long term (current) use of aspirin; Z79.899 Other long term (current) drug therapy
CPT/HCPCS: 10112